=== PATIENT | female | born 1955 | race Caucasian/White ===

== ENCOUNTER 2019-07-18 06:53 | Day surgery (SDC) | payer MEDICARE, OTHER ==
[~2019-07-18] VITALS: Ht 160 cm; Wt 63.7 kg
[~2019-07-18 06:53] MED LIST: Advil Migraine200 MG PO; Bactrim Ds Tab1 EACH PO; CLARITIN10 MG PO; CYCL0.05OP; Calcium With M1 EAC2 PO; Estrace Vagin42.5 GM VAG; FLAX PO; LEVO-T50 MCG PO; Pyridium100 MG PO; TIROSINT100 MCG PO; VIT1CAPS12 PO; VITAMIN D31000 UNI1 PO
[2019-07-18] MEDS ORDERED: HYDSUL200 (07:21)
== END 2019-07-18 08:49 | disposition home or self-care (01) ==
LOC: ORSCSDS 06:53
PROVIDERS: Surgery
PROC: 0DBK8ZX Excision of Ascending Colon, Via Natural or Artificial Opening Endoscopic, Diagnostic (ICD-10-PCS; principal; 2019-07-18 08:00)
DX: Z12.11 Encounter for screening for malignant neoplasm of colon (principal); D12.2 Benign neoplasm of ascending colon; E03.9 Hypothyroidism, unspecified; E78.5 Hyperlipidemia, unspecified; I10 Essential (primary) hypertension; Z79.01 Long term (current) use of anticoagulants; Z79.899 Other long term (current) drug therapy
CPT/HCPCS: 88305; J0461; J2405; J2704; J7120

== ENCOUNTER 2019-10-03 07:30 | Observation (INO) | payer MEDICARE, OTHER ==
[~2019-10-03] VITALS: Ht 160 cm; Wt 63.2 kg
[~2019-10-03 07:30] MED LIST changes: +BETA.05TCA TOP; +CALCIUM PO; -CYCL0.05OP; +CYCL0.05OP BOTHEYES; +HYDSUL200 PO; +TIMO.5OPSO BOTHEYES; +VITAMIN D325 MC1 PO
--- NOTE | 2019-10-10 08:09 | NUR ---
Ambulatory in [facility] warming gown applied. Surgical site prepped with 2% Chlorhexidine cloth wipe. Patient states colon prep results clear. History, Chart, Medications and Allergies reviewed before start of procedure.Lungs clear T/O to Auscultation. Patient confirms NPO status and agrees with scheduled surgery. Pre-Op teaching done. Pt verbalizes understanding. Patient States Post-Procedure ride home has been arranged. Patient reports completing Chlorhexadine shower X2 prior to admission to hospital.
--- NOTE | 2019-10-10 18:18 | NUR ---
SHIFT SUMMARY PT HAS DONE WELL SINCE ARRIVAL TO UNIT AT 1200. TOLERATING A MIXTURE OF CLEARS AND FULL LQS. PT HAS NO TEETH SO ADVANCING DIET BEYOND THAT IS DIFFICULT FOR HER. VOIDING, AMBULATING EASILY, VSS, PLEASANT AND COOPERATIVE. SURG SITES WNL. ABD SOFT NON TENDER.
[2019-10-10] MEDS ORDERED: HYDR1TAB94 PO (19:14)
--- NOTE | 2019-10-10 19:27 | NUR ---
DISCHARGE DR AMAYA ROUNDED, DC ORDERS RECEIVED. PT EXCITED FOR DC. SCRIPT ALREADY GIVEN TO SPOUSE EARLIER AND FILLED. STATES UNDERETANDING OF DC. DENIES FURTHER NEEDS AND WC OUT.
== END 2019-10-10 19:40 | disposition home or self-care (01) ==
LOC: SURS 10-10 06:38 → PRE IP 10-10 06:38 → SURS 10-10 06:39 → PRE IP 10-10 08:30 → SURS 10-10 11:59
PROVIDERS: ADMIT Surgery
PROC: 0DTJ4ZZ Resection of Appendix, Percutaneous Endoscopic Approach (ICD-10-PCS; principal; 2019-10-10 08:30)
DX: K38.8 Other specified diseases of appendix (principal); E78.5 Hyperlipidemia, unspecified; E03.9 Hypothyroidism, unspecified; Z88.8 Allergy status to other drugs, medicaments and biological substances; Z79.899 Other long term (current) drug therapy
CPT/HCPCS: 88304; A9270-GY; G0378; J0690; J1100; J1885; J2370; J2405; J2704; J3010; J7120

== ENCOUNTER → 2020-04-09 | Outpatient (CLI) | payer MEDICARE, OTHER ==
[~2020-04-09] MED LIST changes: +HYDR1TAB94 PO
[2020-04-09 14:19] LABS: BASOPHILS ABSOLUTE AUTO 0.01 K/mm3 (0.00-0.23); BASOPHILS PERCENT AUTO 0 % (0-2); EOSINOPHILS ABSOLUTE AUTO 0.16 K/mm3 (0.00-0.68); EOSINOPHILS PERCENT AUTO 2 % (0-6); Hematocrit 34.2 % (33.0-51.0); Hemoglobin 10.5 g/dL (11.5-16.0); IMMATURE GRAN ABSOLUTE AUTO 0.01 K/mm3 (0.00-0.10); IMMATURE GRAN PERCENT AUTO 0 % (0-1); LYMPHOCYTES ABSOLUTE AUTO 1.29 K/mm3 (0.84-5.20); LYMPHOCYTES PERCENT AUTO 16 % (21-46); MONOCYTES ABSOLUTE AUTO 0.75 K/mm3 (0.16-1.47); MONOCYTES PERCENT AUTO 9 % (4-13); Mean Corpuscular HGB 28.1 pg (26.0-34.0); Mean Corpuscular HGB Conc 30.7 g/dL (31.5-36.5); Mean Corpuscular Volume 91 fL (80-100); Mean Platelet Volume 9.2 fL (9.1-12.4); NEUTROPHILS ABSOLUTE AUTO 5.85 K/mm3 (1.96-9.15); NEUTROPHILS PERCENT AUTO 73 % (41-73); Platelet Count 244 K/mm3 (150-400); RDW Coefficient Variation 14.6 % (11.7-14.2); RDW Standard Deviation 50.3 fL (35.1-46.3); Red Blood Cell Count 3.74 M/mm3 (3.80-5.20); White Blood Cell Count 8.07 K/mm3 (4.00-11.30)
[2020-04-09 14:30] LABS: Anion Gap 6 mmol/L (6-16); Blood Urea Nitrogen 16 mg/dL (8-24); Bun/Creatinine Ratio 20.3 (12.0-20.0); CO2, Blood 30 mmol/L (21-32); Calcium, Blood 9.6 mg/dL (8.5-10.1); Chloride, Blood 104 mmol/L (98-108); Creatinine, Blood 0.79 mg/dL (0.40-1.00); Glomerular Filtration Rate >60 (60-); Glucose, Blood 78 mg/dL (70-99); Potassium, Blood 4.1 mmol/L (3.5-5.5); Sodium, Blood 140 mmol/L (136-145)
== END | disposition home or self-care (01) ==
LOC: LAB 13:54 → LAB SHORT 13:54
PROVIDERS: Physician Assistant
DX: R22.9 Localized swelling, mass and lump, unspecified (principal)
CPT/HCPCS: 80048; 85025

== ENCOUNTER → 2021-01-16 | Outpatient (CLI) | payer MEDICARE, OTHER ==
[2021-01-18 14:01] LABS: Stool Occult Blood Guaiac 1 Neg (Neg)
[2021-01-21 13:29] LABS: Stool Occult Blood Guaiac 2 Neg (Neg); Stool Occult Blood Guaiac 3 Neg (Neg)
== END ==
LOC: LAB 12:37 → LAB SHORT 12:37
PROVIDERS: Internal Medicine
DX: D64.9 Anemia, unspecified (principal)
CPT/HCPCS: 82272

== ENCOUNTER 2021-07-08 15:20 | Inpatient (IN) | payer MEDICARE, OTHER ==
[~2021-07-08] VITALS: Ht 160 cm; Wt 54.4 kg
[~2021-07-08 15:20] MED LIST changes: -VITAMIN D325 MC1 PO
[2021-07-08 16:15] LABS: Alanine Aminotransfer (ALT/SGP 18 U/L (12-78); Albumin, Blood 3.6 g/dL (3.4-5.0); Albumin/Globulin Ratio 0.8 (0.8-1.8); Alk Phos 70 U/L (50-136); Anion Gap 2 mmol/L (6-16); Aspartate Aminotrans (AST/SGOT 21 U/L (12-37); Bilirubin, Total 0.4 mg/dL (0.1-1.0); Blood Urea Nitrogen 18 mg/dL (8-24); Bun/Creatinine Ratio 24.1 (12.0-20.0); CO2, Blood 29 mmol/L (21-32); Calcium, Blood 9.9 mg/dL (8.5-10.1); Chloride, Blood 108 mmol/L (98-108); Creatinine, Blood 0.75 mg/dL (0.40-1.00); Globulin, Blood 4.7 g/dL (2.2-4.0); Glomerular Filtration Rate >60 (60-); Glucose, Blood 90 mg/dL (70-99); Potassium, Blood 4.4 mmol/L (3.5-5.5); Sodium, Blood 139 mmol/L (136-145); Total Protein, Blood 8.3 g/dL (6.4-8.2)
[2021-07-08 16:25] LABS: BASOPHILS ABSOLUTE AUTO 0.01 K/mm3 (0.00-0.23); BASOPHILS PERCENT AUTO 0 % (0-2); EOSINOPHILS ABSOLUTE AUTO 0.19 K/mm3 (0.00-0.68); EOSINOPHILS PERCENT AUTO 4 % (0-6); Hematocrit 38.4 % (33.0-51.0); Hemoglobin 12.6 g/dL (11.5-16.0); IMMATURE GRAN ABSOLUTE AUTO 0.01 K/mm3 (0.00-0.10); IMMATURE GRAN PERCENT AUTO 0 % (0-1); LYMPHOCYTES ABSOLUTE AUTO 1.46 K/mm3 (0.84-5.20); LYMPHOCYTES PERCENT AUTO 27 % (21-46); MONOCYTES ABSOLUTE AUTO 0.42 K/mm3 (0.16-1.47); MONOCYTES PERCENT AUTO 8 % (4-13); Mean Corpuscular HGB 30.4 pg (26.0-34.0); Mean Corpuscular HGB Conc 32.8 g/dL (31.5-36.5); Mean Corpuscular Volume 93 fL (80-100); Mean Platelet Volume 9.1 fL (9.1-12.4); NEUTROPHILS ABSOLUTE AUTO 3.37 K/mm3 (1.96-9.15); NEUTROPHILS PERCENT AUTO 62 % (41-73); Platelet Count 232 K/mm3 (150-400); RDW Coefficient Variation 12.4 % (11.7-14.2); RDW Standard Deviation 42.5 fL (35.1-46.3); Red Blood Cell Count 4.15 M/mm3 (3.80-5.20); White Blood Cell Count 5.46 K/mm3 (4.00-11.30)
[2021-07-08 19:15] LABS: Influenza A, PCR NEGATIVE (NEGATIVE); Influenza B, PCR NEGATIVE (NEGATIVE); Resp Syncytial Virus, PCR NEGATIVE (NEGATIVE); SARS-Cov-2 (COVID-19) PCR, MMC NEGATIVE (NEGATIVE)
--- NOTE | 2021-07-08 22:48 | NUR ---
ADMISSION NOTE ADMITTED FROM ER AT 2130. PT HAS R PERIORBITAL CELLULITIS WITH AN ABSCESS. NOT IMPROVED ON AUGMENTIN AND SENT HER TO ER. 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 ALSO HX OF HYPOTHYROID AND GLAUCOMA. PT IS PLEASANT AND A&O X 4. PT INDEPENDENT IN THE ROOM. PT ON LIQUID NUTRITION (BOOSTS). PT HAVING 4/10 DULL HEADACHE AND FACIAL PAIN. MEDICATED WITH TYLENOL PER EMAR AT ADMISSION. PT HAD PARTIAL FACIAL RECONSTRUCTION DONE IN MAY. PT MADE AWARE OF CALL LIGHT AND IT IS WITHIN HER REACH. WILL CONTINUE TO MONITOR THROUGH THE NIGHT.
--- NOTE | 2021-07-09 04:29 | NUR ---
SHIFT SUMMARY PT RESTING IN BED. MEDICATED PER EMAR FOR PAIN. PT INDEPENDENT IN ROOM. NO ACUTE CHANGES. PT R SIDE OF FACE CONTINUES TO BE RED FROM HER CELLULITIS AND ABSCESS. CALL LIGHT WITHIN REACH AND WILL CONTINUE TO MONITOR.
[2021-07-09 05:28] LABS: Hematocrit 32.8 % (33.0-51.0); Hemoglobin 10.9 g/dL (11.5-16.0); Mean Corpuscular HGB 30.4 pg (26.0-34.0); Mean Corpuscular HGB Conc 33.2 g/dL (31.5-36.5); Mean Corpuscular Volume 91 fL (80-100); Mean Platelet Volume 9.1 fL (9.1-12.4); Platelet Count 169 K/mm3 (150-400); RDW Coefficient Variation 12.2 % (11.7-14.2); RDW Standard Deviation 41.3 fL (35.1-46.3); Red Blood Cell Count 3.59 M/mm3 (3.80-5.20); White Blood Cell Count 3.96 K/mm3 (4.00-11.30)
[2021-07-09 06:36] LABS: Anion Gap 9 mmol/L (6-16); Blood Urea Nitrogen 13 mg/dL (8-24); CO2, Blood 24 mmol/L (21-32); Calcium, Blood 9.4 mg/dL (8.5-10.1); Chloride, Blood 109 mmol/L (98-108); Creatinine, Blood 0.62 mg/dL (0.40-1.00); Glomerular Filtration Rate >60 (60-); Glucose, Blood 83 mg/dL (70-99); Sodium, Blood 142 mmol/L (136-145)
--- NOTE | 2021-07-09 13:30 | NUR ---
Upon receiving an spiritual care referral, I visit patient. Patient tells me about the cancer she has had, about her concerns with this current infection and about her positive outlook that helps her get through it. Patient talks about her family, her [employer] [place] and her many trips to [place] to be with her granddaughters. I encourage helpful attitudes and practices and provide therapeutic listening, companionship and prayer. Patient shows signs of an elevated mood. I will continue to remain available to patient and family.
--- NOTE | 2021-07-09 16:49 | NUR ---
DAY SHIFT SUMMARY PT PLEASANT AND INDEPENDENT IN ROOM, ALERT AND ORIENTED X3. COOPERATIVE WITH CARE. REDNESS TO FACE FROM CELULITIS. PT ABLE TO GO FOR WALK AROUND FLOOR WITH IV POLE IN TOW. CHAPLAN IN TO SEE PT THIS AFTERNOON. PT VOICES SHE IS ANXIOUS TO GET HOME. CALL LIGHT WITHIN REACH.
[2021-07-09] MEDS ORDERED: AMOX-CLAV 875-1 EAC5 PO (19:46)
[2021-07-09] MEDS ORDERED: Hydroxychloroq200 MG PO (19:47)
--- NOTE | 2021-07-09 21:30 | NUR ---
ABAD REACTION WHILE PT RECIEVING 2ND DOSE VANCOMYCIN TONIGHT, RED WARM RASH FOUND ON FOREARMS & T/O LOW BACK WHICH WAS NOT THERE PREVIOUS TO MED INFUSION. INFORMED DR FABIAN, SHE DC'D ABAD FOR NOW ALONG c ORDERED BENADRYL & PEPCID FOR PT. WILL CONT TO MONITOR PT.
--- NOTE | 2021-07-10 04:30 | NUR ---
SHIFT SUMMARY AOX4. VSS. REPORTS 1/10 PAIN IN R CHEEK NEAR EYE. VERY RED, HOT TO TOUCH, SWOLLEN R CHEEK. L SIDE ORAL CAVITY HAS 3 METAL IMPLANTS c PURULENT DRAINAGE SURROUNDING THEM. HAD PT PERFORM PO CARE & SWISH c WARM SALT WATER. LAST NIGHT PT HAD REACTION TO VANCO, READ PREVIOUS NOTE. CALLED IN ENT CONSULT THIS AM. CALL LIGHT IN REACH, WCTM UNTIL DAY NURSE ASSUMES CARE.
[2021-07-10 06:17] LABS: Anion Gap 8 mmol/L (6-16); Blood Urea Nitrogen 14 mg/dL (8-24); Bun/Creatinine Ratio 19.9 (12.0-20.0); CO2, Blood 26 mmol/L (21-32); Calcium, Blood 9.1 mg/dL (8.5-10.1); Chloride, Blood 109 mmol/L (98-108); Creatinine, Blood 0.71 mg/dL (0.40-1.00); Glomerular Filtration Rate >60 (60-); Glucose, Blood 82 mg/dL (70-99); Potassium, Blood 3.9 mmol/L (3.5-5.5); Sodium, Blood 143 mmol/L (136-145)
[2021-07-10 06:56] LABS: BASOPHILS ABSOLUTE AUTO 0.01 K/mm3 (0.00-0.23); BASOPHILS PERCENT AUTO 0 % (0-2); EOSINOPHILS PERCENT AUTO 5 % (0-6); Hematocrit 34.8 % (33.0-51.0); Hemoglobin 11.3 g/dL (11.5-16.0); IMMATURE GRAN ABSOLUTE AUTO 0.01 K/mm3 (0.00-0.10); IMMATURE GRAN PERCENT AUTO 0 % (0-1); LYMPHOCYTES PERCENT AUTO 29 % (21-46); MONOCYTES ABSOLUTE AUTO 0.43 K/mm3 (0.16-1.47); MONOCYTES PERCENT AUTO 10 % (4-13); Mean Corpuscular HGB 29.8 pg (26.0-34.0); Mean Corpuscular HGB Conc 32.5 g/dL (31.5-36.5); Mean Corpuscular Volume 92 fL (80-100); Mean Platelet Volume 9.3 fL (9.1-12.4); NEUTROPHILS ABSOLUTE AUTO 2.33 K/mm3 (1.96-9.15); NEUTROPHILS PERCENT AUTO 56 % (41-73); Platelet Count 185 K/mm3 (150-400); RDW Coefficient Variation 12.2 % (11.7-14.2); RDW Standard Deviation 41.4 fL (35.1-46.3); Red Blood Cell Count 3.79 M/mm3 (3.80-5.20); White Blood Cell Count 4.18 K/mm3 (4.00-11.30)
--- NOTE | 2021-07-10 15:57 | NUR ---
SHIFT SUMMARY PT IS A&O, PLEASANT AND CO-OP. INDEPENDENT IN AND TO [facility]. ADMITTED FOR PERIORBITAL CELLULITIS, WHICH PT NOW SAYS IS STARTING TO IMPROVE. PT DENIES ANY PAIN, UNLESS TOUCHING IT WITH HAND OR APPLYING ANY PRESSURE. PER SHIFT REPORT, PT HAVING REACTION TO IV VANCO. PT REPORTED ITCHING; BENEDRYL GIVEN AND PT REPORTED IT EFFECTIVE. VANCO TO BE RESTARTED WITH RATE SLOWED IF NEEDED. PT HAS BEEN WALKING HALLS FREQUENTLY TO STAY BUSY. VISITOR TO AT THIS TIME. PER SHIFT REPORT, PT HAVING DRAINAGE INSIDE MOUTH ON RT SIDE. PT HAS BEEN RINSING MOUTH WITH WARM SALT WATER. PT REPORTS NO DRAINAGE TODAY. PT STATED THAT SHE HAD RECONSTRUCTIVE SX AND STILL HEALING. PT ONLY ABLE TO TOLERATE FULL LIQUID DIET TO SORE MOUTH STILL HEALING. PT DENIES FURTHER NEEDS. CALL LT IN REACH.
--- NOTE | 2021-07-11 05:20 | NUR ---
PT IS A/OX4. PERIORBITAL CELLULITIS IS IMPROVING, TYLENOL EFFECTIVE FOR PAIN. NOW TOLERATING VANCO. INDEPENDENT IN ROOM TO BATHROOM. TAKES MEDS PO. DIET: FULL LIQUID. POSSIBLE DC 07/11.
[2021-07-11] MEDS ORDERED: VISBIOME 112.51 EACH PO (13:05)
[2021-07-11] MEDS ORDERED: LINE600 PO (13:05)
--- NOTE | 2021-07-11 13:34 | NUR ---
PT IS A&O, PLEASANT AND CO-OP, SITTING UP TO EOB. PT WANTING TO GO HOME. REDNESS AND SWELLING TO R FACE MUCH IMPROVED FROM YESTERDAY. DR TATE IN LAST NIGHT TO DRAIN ABSCESS UNDER EYE. PT TOLERATED WELL ABX OINTMENT APPLIED WHEN FINISHED. PT TO F/U WITH DR TATE IN OFFICE OUTPT. APPOINTMENT MADE BY PT. PT UP AMBULATING IN HALLS AFTER BREAKFAST. DR SHARMA TO TO DISCUSS PLAN OF CARE. F/U CT DONE OF R FACE. D/C ORDERS PLACED. PT TO COMPLETE ORDERED PO ABX OUTPT. IV SITE D/C'D. MEDS FAXED TO [facility] PER PT REQUEST. D/C INSTRUCTIONS DISCUSSED WITH PT. NOTIFIED. PT TO BE TAKEN OUT TO [facility] VIA W/C.
== END 2021-07-11 13:50 | disposition home or self-care (01) | DRG 603 ==
LOC: ER 15:20 → MEDS 19:04
PROVIDERS: Emergency Medicine; Internal Medicine; Physician Assistant; ADMIT Internal Medicine
PROC: 0J910ZZ Drainage of Face Subcutaneous Tissue and Fascia, Open Approach (ICD-10-PCS; principal; 2021-07-10)
DX: L03.213 Periorbital cellulitis (principal); L02.01 Cutaneous abscess of face; E03.9 Hypothyroidism, unspecified; L43.9 Lichen planus, unspecified; H40.9 Unspecified glaucoma; H04.329 Acute dacryocystitis of unspecified lacrimal passage; L03.211 Cellulitis of face; Z20.822 Contact with and (suspected) exposure to COVID-19; Z98.890 Other specified postprocedural states; Z88.8 Allergy status to other drugs, medicaments and biological substances; Z91.048 Other nonmedicinal substance allergy status; Z79.899 Other long term (current) drug therapy; Z90.49 Acquired absence of other specified parts of digestive tract; Z90.89 Acquired absence of other organs
CPT/HCPCS: 0241U; 36415; 70487; 80048; 80053; 85025; 85027; 85651; 86140; 96365; 96367; 99284-25; A9270; J0696; J1200; J3370; J7050; J7120; Q9967

== ENCOUNTER → 2021-08-29 | Outpatient (CLI) | payer MEDICARE, OTHER ==
[~2021-08-29] MED LIST changes: +AMOX-CLAV 875-1 EAC5 PO; +Hydroxychloroq200 MG PO; +LINE600 PO; +VISBIOME 112.51 EACH PO
== END ==
LOC: LAB SHORT 10:00
DX: R30.0 Dysuria (principal)
CPT/HCPCS: 87077; 87086; 87186

== ENCOUNTER 2021-09-18 13:28 | Emergency (ER) | payer MEDICARE, OTHER ==
[~2021-09-18] VITALS: Ht 160 cm; Wt 59.0 kg
[2021-09-18 14:36] LABS: Alanine Aminotransfer (ALT/SGP 55 U/L (12-78); Albumin, Blood 3.6 g/dL (3.4-5.0); Albumin/Globulin Ratio 0.9 (0.8-1.8); Alk Phos 92 U/L (50-136); Anion Gap 4 mmol/L (6-16); Aspartate Aminotrans (AST/SGOT 99 U/L (12-37); Bilirubin, Total 0.7 mg/dL (0.1-1.0); Blood Urea Nitrogen 16 mg/dL (8-24); Bun/Creatinine Ratio 20.7 (12.0-20.0); CO2, Blood 28 mmol/L (21-32); Calcium, Blood 9.7 mg/dL (8.5-10.1); Chloride, Blood 108 mmol/L (98-108); Creatinine, Blood 0.77 mg/dL (0.40-1.00); Globulin, Blood 4.2 g/dL (2.2-4.0); Glomerular Filtration Rate >60 (60-); Glucose, Blood 104 mg/dL (70-99); Potassium, Blood 3.8 mmol/L (3.5-5.5); Sodium, Blood 140 mmol/L (136-145); Total Protein, Blood 7.8 g/dL (6.4-8.2)
[2021-09-18 14:54] LABS: BASOPHILS ABSOLUTE AUTO 0.01 K/mm3 (0.00-0.23); BASOPHILS PERCENT AUTO 0 % (0-2); EOSINOPHILS ABSOLUTE AUTO 0.14 K/mm3 (0.00-0.68); EOSINOPHILS PERCENT AUTO 2 % (0-6); Hematocrit 37.5 % (33.0-51.0); Hemoglobin 12.2 g/dL (11.5-16.0); IMMATURE GRAN ABSOLUTE AUTO 0.05 K/mm3 (0.00-0.10); IMMATURE GRAN PERCENT AUTO 1 % (0-1); LYMPHOCYTES ABSOLUTE AUTO 1.67 K/mm3 (0.84-5.20); LYMPHOCYTES PERCENT AUTO 20 % (21-46); MONOCYTES ABSOLUTE AUTO 0.74 K/mm3 (0.16-1.47); MONOCYTES PERCENT AUTO 9 % (4-13); Mean Corpuscular HGB 30.2 pg (26.0-34.0); Mean Corpuscular HGB Conc 32.5 g/dL (31.5-36.5); Mean Corpuscular Volume 93 fL (80-100); Mean Platelet Volume 9.3 fL (9.1-12.4); NEUTROPHILS ABSOLUTE AUTO 5.61 K/mm3 (1.96-9.15); NEUTROPHILS PERCENT AUTO 68 % (41-73); Platelet Count 193 K/mm3 (150-400); RDW Standard Deviation 43.9 fL (35.1-46.3); Red Blood Cell Count 4.04 M/mm3 (3.80-5.20); White Blood Cell Count 8.22 K/mm3 (4.00-11.30)
== END 2021-09-18 17:20 | disposition home or self-care (01) ==
LOC: ER 13:28
PROVIDERS: Emergency Medicine
DX: R07.9 Chest pain, unspecified (principal); Z88.8 Allergy status to other drugs, medicaments and biological substances; Z79.899 Other long term (current) drug therapy
CPT/HCPCS: 36415; 71045; 80053; 83690; 84484; 85025; 93005; 93010; 99285-25

== ENCOUNTER → 2022-05-05 | Outpatient (CLI) | payer MEDICARE, OTHER | LOC: LAB SHORT 11:10 → LAB 11:10 | DX: L11.9 Acantholytic disorder, unspecified (principal); D23.72 Other benign neoplasm of skin of left lower limb, including hip | CPT/HCPCS: 88305; 88312 ==

== ENCOUNTER → 2022-06-01 | Outpatient (CLI) | payer MEDICARE, OTHER ==
[2022-06-03 13:10] LABS: HPV 16 Negative (Negative); HPV 18 Negative (Negative); HPV OTHER HR TYPES Negative (Negative)
== END ==
LOC: LAB 16:50 → LAB SHORT 16:50
PROVIDERS: Advanced Practice Midwife
DX: Z01.419 Encounter for gynecological examination (general) (routine) without abnormal findings (principal)
CPT/HCPCS: 87624; G0123

== ENCOUNTER 2022-07-15 07:37 | Day surgery (SDC) | payer MEDICARE, OTHER ==
[~2022-07-15] VITALS: Ht 160 cm; Wt 54.2 kg
--- NOTE | 2022-07-15 08:57 | NUR ---
07/15/22 0857 JEREMY LOBO PT UP TO VOID URINE PRIOR TO GOING TO OR
--- NOTE | 2022-07-15 10:14 | NUR ---
07/15/22 1014 Macey Yee A PILLOW UNDER HEAD AND KNEES, LEFT ARM SECURED ON PADDED ARM BOARDS, RIGHT ARM TUCKED.
== END 2022-07-15 13:59 | disposition home or self-care (01) ==
LOC: ORSCSDS 07:37
PROVIDERS: Otolaryngology
PROC: 099V4ZZ Drainage of Left Ethmoid Sinus, Percutaneous Endoscopic Approach (ICD-10-PCS; principal; 2022-07-15 09:00)
PROC: 099R4ZZ Drainage of Left Maxillary Sinus, Percutaneous Endoscopic Approach (ICD-10-PCS; principal; 2022-07-15 09:00)
PROC: 099W4ZZ Drainage of Right Sphenoid Sinus, Percutaneous Endoscopic Approach (ICD-10-PCS; principal; 2022-07-15 09:00)
PROC: 8E09XBZ Computer Assisted Procedure of Head and Neck Region (ICD-10-PCS; principal; 2022-07-15 09:00)
PROC: 099X4ZZ Drainage of Left Sphenoid Sinus, Percutaneous Endoscopic Approach (ICD-10-PCS; principal; 2022-07-15 09:00)
PROC: 099Q4ZZ Drainage of Right Maxillary Sinus, Percutaneous Endoscopic Approach (ICD-10-PCS; principal; 2022-07-15 09:00)
PROC: 099U4ZZ Drainage of Right Ethmoid Sinus, Percutaneous Endoscopic Approach (ICD-10-PCS; principal; 2022-07-15 09:00)
PROC: 09SM4ZZ Reposition Nasal Septum, Percutaneous Endoscopic Approach (ICD-10-PCS; principal; 2022-07-15 09:00)
PROC: 099S4ZZ Drainage of Right Frontal Sinus, Percutaneous Endoscopic Approach (ICD-10-PCS; principal; 2022-07-15 09:00)
PROC: 099T4ZZ Drainage of Left Frontal Sinus, Percutaneous Endoscopic Approach (ICD-10-PCS; principal; 2022-07-15 09:00)
DX: J32.8 Other chronic sinusitis (principal); J34.2 Deviated nasal septum; H04.202 Unspecified epiphora, left side; E03.9 Hypothyroidism, unspecified; Z79.899 Other long term (current) drug therapy
CPT/HCPCS: 88305; 88311; 88312; A9270; C2625; J0171; J0696; J1100; J2001; J2250; J2405; J2704; J3010

== ENCOUNTER 2022-12-23 11:43 | Day surgery (SDC) | payer MEDICARE, OTHER ==
[~2022-12-23] VITALS: Ht 160 cm; Wt 54.9 kg
[2022-12-23] MEDS ORDERED: FISH OIL 1,2001 EAC7 PO (12:02)
--- NOTE | 2022-12-23 13:40 | NUR ---
12/23/22 1340 Batool Pineda 30ML OF ROPIVACAINE 0.5% MIXED AND VERIFIED WITH 0.15ML OF EPI (1MG/ML) TO MAKE ROPIVACAINE 0.5% WITH EPI 1:200,000. THEN 5ML OF THIS DRAWN UP, MIXED, AND VERIFIED WITH 5ML OF LIDOCAINE 2% WITH EPI 1:100,000 TO BE USED FOR INJECTION AT OPSITE BY DR BOLES.
--- NOTE | 2022-12-23 14:07 | NUR ---
12/23/22 1405 MICHELE HOLDER, STUDENT NURSE ASSISTING WITH CARE.
--- NOTE | 2022-12-23 14:22 | NUR ---
12/23/22 1422 MICHELE HOLDER, STUDENT NURSE ASSISTING WITH CARE.
[2022-12-23 14:31] VITALS: BP 113/65
== END 2022-12-23 14:55 | disposition home or self-care (01) ==
LOC: ORSCSDS 11:43
PROVIDERS: Ophthalmology
PROC: 081Y3J3 Bypass Left Lacrimal Duct to Nasal Cavity with Synthetic Substitute, Percutaneous Approach (ICD-10-PCS; principal; 2022-12-23 13:00)
DX: H04.222 Epiphora due to insufficient drainage, left side (principal); H04.552 Acquired stenosis of left nasolacrimal duct; E03.9 Hypothyroidism, unspecified; Z79.899 Other long term (current) drug therapy
CPT/HCPCS: A9270; J0171; J1100; J2704; J2765; J2795; J3010; J7040

== ENCOUNTER 2023-09-20 07:38 | Day surgery (SDC) | payer MEDICARE, OTHER ==
[~2023-09-20] VITALS: Ht 160 cm; Wt 54.9 kg
[~2023-09-20 07:38] MED LIST changes: +ERGO400 PO; +ESTRADIOL42.5 GM; +FERSU300 PO; +LEVSOD100 PO; +LUBRICANT EYE1 EAC1 BOTHEYES; +OMEGA-3-FISH O1 EAC3 PO; +ONE DAILY MUL400 MCG PO; -TIROSINT100 MCG PO; +propofoL 40 ML IV ONE
[2023-09-20] MEDS ORDERED: Lactated Ringer's 1,000 ML IV ONE (08:38)
[2023-09-20] MEDS ORDERED: FentaNYL Citrate 50 MCG/ML 2 ML Injection ONE (09:00)
[2023-09-20] MEDS ORDERED: Midazolam HCL 1 MG/ML 5MLVIAL ONE (09:01)
[2023-09-20 09:51] VITALS: BP 99/61
== END 2023-09-20 09:58 | disposition home or self-care (01) ==
LOC: ORSCSDS 07:38
PROVIDERS: Surgery
PROC: 0DJD8ZZ Inspection of Lower Intestinal Tract, Via Natural or Artificial Opening Endoscopic (ICD-10-PCS; principal; 2023-09-20 09:00)
DX: Z12.11 Encounter for screening for malignant neoplasm of colon (principal); Z86.010 Personal history of colon polyps; Z85.09 Personal history of malignant neoplasm of other digestive organs; Z90.49 Acquired absence of other specified parts of digestive tract; E03.9 Hypothyroidism, unspecified; Z79.899 Other long term (current) drug therapy
CPT/HCPCS: J2250; J2704; J3010